=== PATIENT | male | born 1975 ===

== ENCOUNTER 2022-10-11 00:59 | Emergency (ER) | payer OTHER, SELFPAY ==
[2022-10-11 01:11] VITALS: BP 168/89; BP 190/110; PULSE 81; PULSE 85; RESP 20; TEMP 36.5; O2SAT 98; O2SAT 99; BMI 36.6
--- NOTE | 2022-10-11 01:58 | ED_ITS ---
HPI - General Adult General Chief complaint: Headache Stated complaint: hypertensive Time Seen by Provider: 10/11/22 01:22 Source: patient Mode of arrival: EMS History of Present Illness HPI narrative: 47-year-old male is brought in by EMS from [facility] where he is currently undergoing detox and states that the staff there refused to give him his clonidine medication in the evening. He reports that he is having a mild headache with dizziness but denies any chest pain or shortness of breath and denies any visual/auditory/speech difficulties. Related Data Allergies Allergy/AdvReac Type Severity Reaction Status Date / Time aspirin Allergy Unknown anaphylaxis Verified 03/07/18 00:00 Review of Systems Review of Systems: Pertinent positives and negatives as stated in HPI [facility] Past Medical History Source: nursing notes reviewed Social History Social History Advance Directives: No Advance Directives Information Provided: Yes Physical Exam ED Vital Signs: Vital Signs - 24 hr 10/11/22 01:11 Temperature 97.7 F Pulse Rate 81 Respiratory Rate 20 Blood Pressure 168/89 H Pulse Oximetry 99 Oxygen Delivery Method Room Air BMI result Body Mass Index 36.6 VITAL SIGNS: Reviewed. GENERAL: Well developed, well nourished, in no acute distress. HEAD: Normocephalic/atraumatic EYES: PERRLA, EOMI EARS: Ext canals without abnormality, TMs non-bulging and non-erythematous NOSE: Nares patent bilateral OROPHARYNX: no oral lesions noted, posterior pharynx clear and non-erythematous without noted tonsillar enlargement/erythema/exudates NECK: Supple, no adenopathy LUNGS: Normal breath sounds. No adventitious sounds or accessory muscle use. SpO2<99> CARDIOVASCULAR: Regular rate and rhythm without noted murmurs, no JVD or lower extremity edema. ABDOMEN: Soft, non-tender, non-distended with bowel sounds. MUSCULOSKELETAL: No tenderness, deformities, or effusions noted on gross inspection. EXTREMITIES: No cyanosis, clubbing or edema. SKIN: Inspection of the skin reveals no rashes NEUROLOGIC: Alert and oriented x 4. Strength and sensation to light touch were grossly intact x 4, no facial asymmetry, no pronator drift, cranial nerves 2-12 are grossly intact.. Medical Decision Making Medical Decision Making [facility] Narrative: This is a 47-year-old male with history and clinical presentation and my interpretation requiring an ambulance to bring him into the emergency room because staff at his current detox location declined to give him his clonidine. I do not see the clonidine listed on the [facility] paperwork, however I did confirm on his pharmacy medications that he received a prescription on 09/28/2022. Patient received Tylenol, he is nonfocal and denies any chest pain and will receive his 0.2 mg of clonidine. He is otherwise discharged back to [facility] in stable condition. Differential Diagnosis Please see the discussion above External Record Review External record reviewed: Outpatient record Discharge Plan Discharge Clinical Impression: Headache, Hypertension Patient Disposition: Xfer Other Instructions: General Headache (ED), Hypertension (ED) Additional Instructions: 1. Resume all home medications as prescribed. 2. Follow-up with your primary care provider 1st thing in the morning. Return to the ER for any worsening symptoms.
[2022-10-11] MEDS: Acetaminophen 325 MG TABLET 975 MG PO (02:31)
[2022-10-11] MEDS: cloNIDine HCL 0.2 MG TABLET PO (02:32)
[2022-10-11 03:18] VITALS: BP 144/72; PULSE 83; RESP 18; O2SAT 95
--- NOTE | 2022-10-11 03:30 | PC.NURSE ---
late entry- pt medicated according to thad. vss. pt provided with discharge packet. staff member form [facility] picked pt up to bring back to detox. discharge instructions given to staff member as well. verbalization of understanding of idscharge plan
== END 2022-10-11 03:30 | disposition home or self-care (01) ==
PROVIDERS: Emergency Provider Student in an Organized Health Care Education/Training Program
DX: R51.9 Headache, unspecified (principal); I10 Essential (primary) hypertension
CPT/HCPCS: 99283; 99284

== ENCOUNTER 2022-12-06 12:54 | Emergency (ER) | payer OTHER, SELFPAY ==
--- NOTE | 2022-12-06 12:58 | ED_ITS ---
HPI - Extremity Injury (Lower) General Chief Complaint: General Medical Stated Complaint: L leg inj Time Seen by Provider: 12/06/22 13:02 Source: patient Mode of arrival: ambulatory Limitations: no limitations History of Present Illness HPI Narrative: 47 yo male presents to the ER for LLE pain and open wound. He states that he has been scratching the area when he broke skin. He states that there was a rash. He denies hx of diabetes. He denies fever, drainage from the wound site. He was sent here by his nurse from a program for evaluation. MD complaint: leg injury (ulceration from scratching) Place: home Severity: mild Relieving factors: nothing Exacerbating factors: nothing Associated symptoms: ambulatory Other symptoms: none Related Data Previous Rx's Medication Instructions Recorded amoxicillin 875 mg-potassium 1 tab PO BID #14 tabs 12/06/22 clavulanate 125 mg tablet bacitracin zinc 500 unit/gram 1 appl topical TID #28 grams 12/06/22 topical ointment Allergies Allergy/AdvReac Type Severity Reaction Status Date / Time aspirin Allergy Unknown anaphylaxis Verified 03/07/18 00:00 Review of Systems Review of Systems: Yes all other systems are reviewed and are negative [facility] Social History Social History Substance Use Type: Crack/Cocaine Advance Directives: No Advance Directives Information Provided: No Physical Exam Vital Signs: Vital Signs: Last Vital Signs Temp 97.3 F 12/06/22 12:59 Pulse 86 12/06/22 12:59 Resp 20 12/06/22 12:59 BP 111/67 12/06/22 12:59 Pulse Ox 95 12/06/22 12:59 O2 Del Method Room Air 12/06/22 12:59 BMI result Body Mass Index 52.2 Appearance: Alert. Oriented X3. No acute distress. HEENT: normal inspection CVS: Normal heart rate and rhythm. Pulses normal. Respiratory: No respiratory distress. Skin: Skin warm and dry. Normal skin color. Normal skin turgor. No rashes. Extremities: left lower extremity with anterior areas of hyperpigmentation, one lesion centrally has excoriations with erythematous, raw, exposed superficial wound with mild surronding warmth. no LE swelling. no calf tenderness. Neuro: Oriented X 3. No motor deficit. No sensory deficit. steady gait Medications Administered Discontinued Medications Generic Name Dose Route Start Last Admin Trade Name Malcom PRN Reason Stop Dose Admin Bacitracin 1 appl 12/06/22 13:00 12/06/22 13:05 Bacitracin Oint 0.9 Gm Packet TOPICAL 12/06/22 13:01 1 appl ONCE ONE Administration Protocol Medical Decision Making Medical Decision Making MDM Narrative: 41 yo male presents to the ER for evaluation of of LLE open wounds from scratching. mild cellulitic changes so will start augmentin and topical bacitrain. no evidence of abscess, dvt or systemic infection. vss. stable for d/c home with abx and outpatient follow up prn. patient agrees w/ plan Differential Diagnosis Differential Diagnoses: The differential diagnosis associated with the presenta tion includes superficial excoriations, cellulitis, open wound, infected wound, PVD Critical Care Time Critical Care Time Critical Care Time: No Discharge Plan Discharge Clinical Impression: Cellulitis Patient Disposition: Home, Self-Care Instructions: Cellulitis (DC) Additional Instructions: use bacitracin 1-2 times per day take the prescribed antibiotic as directed - take the entire course and do not m iss any doses keep clean and covered If you develop new or worsening symptoms call 911 or come back to the ER for further evaluation. Prescriptions: New amoxicillin-pot clavulanate 875-125 mg tablet 1 tab PO BID Qty: 14 0RF bacitracin zinc 500 unit/gram ointment 1 appl topical TID Qty: 28 0RF
[2022-12-06 12:59] VITALS: BP 111/67; PULSE 86; RESP 20; TEMP 36.3; O2SAT 95; BMI 52.2
[2022-12-06] MEDS: Bacitracin Oint 0.9 GM PACKET 1 APPL TOPICAL (13:05)
== END 2022-12-06 13:22 | disposition home or self-care (01) ==
LOC: HO.ED 13:14
PROVIDERS: Emergency Provider Emergency Medicine; PCP Internal Medicine
DX: L03.116 Cellulitis of left lower limb (principal); R21 Rash and other nonspecific skin eruption
CPT/HCPCS: 99282; 99283